=== PATIENT | female | born 1965 | race Caucasian/White ===

== ENCOUNTER 2017-01-28 15:38 | Emergency (ER) | payer MEDICAID ==
[2017-01-28 16:02] VITALS: BP 123/77
--- NOTE | 2017-01-28 16:07 | Emergency Department Report ---
Stated Complaint: DOG BITE Time Seen by Provider: 01/28/17 16:01 - HPI History of Present Illness: PT had dog bite to L thigh yesterday. PT was bit by friend's dog - ROS Review of Systems: - drainage - Exam Physical Exam: dog bite to L post thigh MSE screening note: Focused history and physical exam performed. Due to findings the following was ordered: medication ED Disposition for MSE Condition: Stable
[2017-01-28] MEDS ORDERED: AUGMENTIN 875 MG PO ONE (16:08)
[2017-01-28] MEDS ORDERED: BOOSTRIX IM ONE (16:08)
== END 2017-01-28 17:41 ==
LOC: ED 15:38
DX: S71.152A Open bite, left thigh, initial encounter (principal); Z53.21 Procedure and treatment not carried out due to patient leaving prior to being seen by health care provider